=== PATIENT | female | born 1995 | race Caucasian/White ===

== ENCOUNTER 2017-08-05 14:06 | Emergency (ER) | payer OTHER ==
[2017-08-05 14:14] VITALS: BP 102/71; PULSE 93; RESP 18; TEMP 98.6; O2SAT 99
--- NOTE | 2017-08-05 14:38 | EDPHY ---
H & P Stated Complaint: L calf , heat bruising, pain Time Seen by Provider: 08/05/17 14:27 HPI/ROS: CHIEF COMPLAINT: Left calf burning HISTORY OF PRESENT ILLNESS: The patient is a 22-year-old female who comes to the emergency department complaining of a burning sensation in the left calf. She states that it is internal and that there are no external signs. She has not had any swelling or erythema or warmth to the touch. She states that the symptoms began about 2 weeks ago after returning home from a trip to [facility]. 2 days ago she also has some chest pain and was seen at the urgent care. She had a negative troponin, negative D-dimer and negative chest x-ray and EKG and was told to follow-up. Today she called her primary is office for follow-up in the triage nurse told her she needed to come to the ER to get evaluated for left leg pain. She has not had a fever. She thinks that the pain may have began because she fell down on July 15. She does not remember specific injury to that leg and her pain did not begin until about 2 weeks later. She does have some mild bruising to both shins which she states are from [place]. She is no longer having any chest pain. REVIEW OF SYSTEMS: Constitutional: denies: chills, fever, recent illness, recent injury EENTM: denies: blurred vision, double vision, nose congestion Respiratory: denies: cough, shortness of breath Cardiac: denies: chest pain, irregular heart rate, lightheadedness, palpitations Gastrointestinal/Abdominal: denies: abdominal pain, diarrhea, nausea, vomiting, blood streaked stools Genitourinary: denies: dysuria, frequency, hematuria, pain Musculoskeletal: See HPI Skin: denies: lesions, rash, jaundice, bruising Neurological: denies: headache, numbness, paresthesia, tingling, dizziness, weakness Hematologic/Lymphatic: denies: blood clots, easy bleeding, easy bruising Immunologic/allergic: denies: HIV/AIDS, transplant EXAM: GENERAL: Well-appearing, well-nourished and in no acute distress. HEAD: Atraumatic, normocephalic. EYES: Pupils equal round and reactive to light, extraocular movements intact, sclera anicteric, conjunctiva are normal. ENT: TMs normal, nares patent, oropharynx clear without exudates. Moist mucous membranes. NECK: Normal range of motion, supple without lymphadenopathy or JVD. LUNGS: Breath sounds clear to auscultation bilaterally and equal. No wheezes rales or rhonchi. HEART: Regular rate and rhythm without murmurs, rubs or gallops. ABDOMEN: Soft, nontender, normoactive bowel sounds. No guarding, no rebound. No masses appreciated. BACK: No CVA tenderness, no spinal tenderness, step-offs or deformities EXTREMITIES: Normal range of motion, no pitting or edema. No clubbing or cyanosis. Very minor bruising over the shins. No erythema. Negative Homans NEUROLOGICAL: Cranial nerves II through XII grossly intact. Normal speech, normal gait. 5/5 strength, normal movement in all extremities, normal sensation PSYCH: Normal mood, normal affect. SKIN: Warm, dry, normal turgor, no visible rashes or lesions. Source: Patient Exam Limitations: No limitations - Medical/Surgical History Hx Asthma: No Hx Chronic Respiratory Disease: No Hx Diabetes: No Hx Cardiac Disease: No Hx Renal Disease: No Hx Cirrhosis: No Hx Alcoholism: No Other PMH: abnormal skin cells, tonsillectomy, monox2, wisdom teeth. - Family History Significant Family History: No pertinent family hx - Social History Smoking Status: Never smoked Constitutional: Initial Vital Signs Temperature (C) 37.0 C 08/05/17 14:11 Heart Rate 93 08/05/17 14:11 Respiratory Rate 18 08/05/17 14:11 Blood Pressure 102/71 08/05/17 14:11 O2 Sat (%) 99 08/05/17 14:11 O2 Delivery Mode Room Air Allergies/Adverse Reactions: acetaminophen [From Percocet] Allergy (Verified 08/05/17 14:10) oxycodone [From Percocet] Allergy (Verified 08/05/17 14:10) Medical Decision Making - Diagnostics Imaging Results: Imaging Impressions Extremity Venous Study 08/05/17 14:34 Impression: There is no sonographic evidence of deep or superficial vein thrombosis in the left lower extremity. Findings were discussed with INGRIS CURRY MD at 15:30, on 08/05/2017. Imaging: Discussed imaging studies w/ rn call center Radiologist ED Course/Re-evaluation: 3:40 p.m. we discussed the ultrasound results. The patient is relieved. She declines further workup or testing at this time is ready to go home. Differential Diagnosis: Partial list of the Differential diagnosis considered include but were not limited to; muscle strain, contusion and although unlikely based on the history and physical exam, I also considered infection, DVT, vascular injury. I discussed these differential diagnoses and the plan with the patient as well as the usual and expected course. The patient understands that the diagnosis is provisional and that in medicine we are not always correct and that further workup is often warranted. Usual and customary warnings were given. All of the patient's questions were answered. The patient was instructed to return to the emergency department should the symptoms at all worsen or return, otherwise to followup with the physician as we discussed. Departure - Departure Disposition: Home, Routine, Self-Care Clinical Impression: Pain of left calf Condition: Fair Instructions: Leg Pain (ED) Referrals: Diana Tee [Primary Care Provider] - As per Instructions
== END 2017-08-05 16:19 | disposition home or self-care (01) ==
DX: M79.662 Pain in left lower leg (principal)

== ENCOUNTER 2017-09-07 05:53 | Emergency (ER) | payer OTHER ==
[2017-09-07 06:03] VITALS: O2SAT 97
--- NOTE | 2017-09-07 07:13 | EDPHY ---
H & P Time Seen by Provider: 09/07/17 07:10 HPI/ROS: Chief complaint. Nausea HPI. 22-year-old female with 1 week history of nausea. She has been burping more than usual. She feels like she has been having chills but no fever. She has some upper abdominal discomfort that she describes as cramping. No radiation to her back. Decreased appetite. She has been seen at urgent care and by her PCP who recommended Prilosec. She took her 1st dose of Prilosec yesterday. She has had no vomiting or diarrhea. Denies chest discomfort or shortness of breath. She says no similar symptoms previously. ROS Constitutional. Chills but no fever Eyes. no problems with vision ENT. no sore throat, no nasal drainage Cardiovascular. no chest pain Respiratory. no shortness of breath, no cough Abdominal. Upper abdominal pain with nausea; burping . no problems urinating MS. no calf pain/swelling, no neck/back pain, no joint pain Skin. no rash Lymph. no swollen glands Neuro. no headache, no dizziness, no difficulty walking or with speech Past Medical/Surgical History: Past medical history significant for mono, wisdom teeth removal, childhood asthma, anxiety Social History: Single, nonsmoker, no alcohol Smoking Status: Never smoked Physical Exam: General Appearance: Alert well-developed female mild distress vital signs significant for heart rate 120 Eyes: Pupils equal and round no pallor or injection. ENT, Mouth: Mucous membranes are moist. Respiratory: There are no retractions, lungs are clear to auscultation. Cardiovascular: Regular rate and rhythm. Gastrointestinal: Abdomen is soft with mild upper epigastric discomfort. Normal bowel sounds. No masses. Neurological: Awake and alert, sensory and motor exams grossly normal. Skin: Warm and dry, no rashes. Musculoskeletal: Neck is supple nontender. Extremities symmetrical, full range of motion. Psychiatric: Patient is oriented X 3, there is no agitation. Constitutional: Initial Vital Signs Temperature (C) 36.3 C 09/07/17 05:59 Heart Rate 120 H 09/07/17 05:59 Respiratory Rate 18 09/07/17 05:59 Blood Pressure 100/74 09/07/17 05:59 O2 Sat (%) 97 09/07/17 05:59 O2 Delivery Mode Room Air Allergies/Adverse Reactions: oxycodone [From Percocet] Allergy (Verified 09/07/17 05:59) Home Medications: Medication Instructions Recorded LORazepam [Ativan] 1 mg PO Q6-8PRN PRN #7 tab 09/07/17 Ondansetron 09/07/17 Prilosec 09/07/17 Medical Decision Making Procedures: IV normal saline. Intravenous Phenergan. ED Course/Re-evaluation: Re-evaluation at 8:55 a.m.. Patient is stable. She says she is still slightly nauseated but has not had any vomiting in the emergency department. She and I discussed laboratory evaluation, treatment plan including criteria for return importance of follow-up and further evaluation. She expresses understanding and agreement. She request medication for anxiety. We discussed a short course of medication from the emergency department and following up with her regular physician for further medication for anxiety Differential Diagnosis: I considered gastritis, peptic ulcer disease, , pancreatitis - Data Points Laboratory Results: Laboratory Results 09/07/17 07:45 09/07/17 07:45 09/07/17 09/07/17 09/07/17 07:45 07:45 07:45 WBC 7.38 10^3/uL 10^3/uL (3.80-9.50) RBC 4.88 10^6/uL 10^6/uL (4.18-5.33) Hgb 15.2 g/dL g/dL (12.6-16.3) Hct 44.3 % % (38.0-47.0) MCV 90.8 fL fL (81.5-99.8) MCH 31.1 pg pg (27.9-34.1) MCHC 34.3 g/dL g/dL (32.4-36.7) RDW 12.8 % % (11.5-15.2) Plt Count 234 10^3/uL 10^3/uL (150-400) MPV 10.0 fL fL (8.7-11.7) Neut % (Auto) 61.1 % % (39.3-74.2) Lymph % (Auto) 28.0 % % (15.0-45.0) Grayson % (Auto) 9.6 % % (4.5-13.0) Eos % (Auto) 0.5 % L % (0.6-7.6) Baso % (Auto) 0.7 % % (0.3-1.7) Nucleat RBC Rel Count 0.0 % % (0.0-0.2) Absolute Neuts (auto) 4.50 10^3/uL 10^3/uL (1.70-6.50) Absolute Lymphs (auto) 2.07 10^3/uL 10^3/uL (1.00-3.00) Absolute Monos (auto) 0.71 10^3/uL 10^3/uL (0.30-0.80) Absolute Eos (auto) 0.04 10^3/uL 10^3/uL (0.03-0.40) Absolute Basos (auto) 0.05 10^3/uL 10^3/uL (0.02-0.10) Absolute Nucleated RBC 0.00 10^3/uL 10^3/uL (0-0.01) Immature Gran % 0.1 % % (0.0-1.1) Immature Gran # 0.01 10^3/uL 10^3/uL (0.00-0.10) Sodium 141 mEq/L mEq/L (135-145) Potassium 3.9 mEq/L mEq/L (3.5-5.2) Chloride 107 mEq/L mEq/L (97-110) Carbon Dioxide 21 mEq/l L mEq/l (22-31) Anion Gap 13 mEq/L mEq/L (8-16) BUN 10 mg/dL mg/dL (7-23) Creatinine 0.8 mg/dL mg/dL (0.6-1.0) Estimated GFR > 60 Glucose 71 mg/dL mg/dL (70-100) Calcium 9.7 mg/dL mg/dL (8.5-10.4) Lipase 97 IU/L IU/L (23-300) Beta HCG, Qual NEGATIVE Medications Given: Discontinued Medications Al Hydroxide/Mg Hydroxide (Maalox Susp) 30 ml PO ONCE ONE Stop: 09/07/17 07:22 Last Admin: 09/07/17 07:32 Dose: 30 ml Sodium Chloride (Ns) 1,000 mls @ 0 mls/hr IV EDNOW ONE; Wide Open PRN Reason: Protocol Stop: 09/07/17 07:22 Last Admin: 09/07/17 07:35 Dose: 1,000 mls Lidocaine (Lidocaine 2% Viscous) 15 ml PO ONCE ONE Stop: 09/07/17 07:22 Last Admin: 09/07/17 07:32 Dose: 15 ml Promethazine HCl (Phenergan) 6.25 mg IVP EDNOW ONE Stop: 09/07/17 07:22 Last Admin: 09/07/17 07:49 Dose: 6.25 mg Departure - Departure Disposition: Home, Routine, Self-Care Clinical Impression: Abdominal pain Qualifiers: Abdominal location: epigastric Qualified Code(s): R10.13 - Epigastric pain Condition: Good Instructions: Acute Nausea and Vomiting (ED) Additional Instructions: Continue the Prilosec daily. Zofran as needed for nausea. After using Zofran wait approximately 30 min and then begin frequent, small sips fluids. Gradual diet advancement. Ativan for anxiety. Follow up with your regular physician for further medication for anxiety. 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 Return for vomiting not controlled by Zofran, fever, worsening abdominal pain. Recheck in 2 days if not improved Referrals: Diana Tee [Primary Care Provider] - 2-3 days, call for appt. Chris Yu MD [Medical Doctor] - As per Instructions Prescriptions: LORazepam [Ativan] 1 mg PO Q6-8PRN PRN #7 tab PRN Reason: Anxiety
[2017-09-07] MEDS ORDERED: MAG HYDROX/AL HYDROX/SIMETH 30 ML UDCUP PO ONE (07:21)
[2017-09-07] MEDS ORDERED: PROMETHAZINE HCL 25 MG/ML INJ IVP ONE (07:21)
[2017-09-07] MEDS ORDERED: NS 1,000 ML IV ONE (07:21)
[2017-09-07] MEDS ORDERED: LIDOCAINE 2% VISCOUS 15 ML UDCUP PO ONE (07:21)
[2017-09-07 08:13] LABS: PLATELET COUNT 234 10^3/uL (150-400)
[2017-09-07 09:37] VITALS: BP 112/65; PULSE 85; RESP 16; TEMP 98.2
== END 2017-09-07 09:35 | disposition home or self-care (01) ==
DX: R10.13 Epigastric pain (principal); E86.9 Volume depletion, unspecified
CPT/HCPCS: 96374; J2550

== ENCOUNTER → 2017-09-19 | Outpatient (CLI) | payer OTHER | LOC: FIMAGING 10:26 | PROVIDERS: ATTEND Nurse Practitioner Family | DX: R10.13 Epigastric pain (principal) ==

== ENCOUNTER → 2017-10-31 | Outpatient (CLI) | payer OTHER | LOC: FIMAGING 09:52 | PROVIDERS: ATTEND Nurse Practitioner Family | DX: G24.9 Dystonia, unspecified (principal) | CPT/HCPCS: 78227; A9537 ==

== ENCOUNTER 2018-06-09 21:24 | Emergency (ER) | payer OTHER ==
--- NOTE | 2018-06-09 22:22 | EDPHY ---
H & P Stated Complaint: Mid abd pain, hx IBS, belching, nausea, new meds yesterday- pain since Source: Patient Exam Limitations: No limitations - Personal History LMP (Females 10-55): IUD In Place Current Tetanus Diphtheria and Acellular Pertussis (TDAP): Yes - Medical/Surgical History Hx Asthma: Yes Hx Chronic Respiratory Disease: No Hx Diabetes: No Hx Cardiac Disease: No Hx Renal Disease: No Hx Cirrhosis: No Hx Alcoholism: No Hx HIV/AIDS: No Hx Splenectomy or Spleen Trauma: No Other PMH: abnormal skin cells, tonsillectomy, monox2, wisdom teeth, CHILDHOOD ASTHMA, ANXIETY, IBS - Social History Smoking Status: Never smoked Time Seen by Provider: 06/09/18 22:09 HPI/ROS: HPI: This is a 23-year-old female who presents with Chief Complaint: Mid abd pain, hx IBS, belching, nausea, new meds yesterday- pain since Location: Lower abdominal Quality: Pain Duration: 1-3 hours prior to arrival Signs and Symptoms: no fever, + nausea, no vomiting, no hematemesis, no blood in stool, no abdominal bloating, no diarrhea, no back pain, no urinary symptoms , no vaginal bleeding/discharge, no indigestion, no chest pain, no shortness of breath, + belching Timing: Acute, constant Severity: Moderate to severe Context: Patient is a student at [employer] and has a history of irritable bowel syndrome presents with sudden onset approximately 1- 3 hours prior to arrival of lower abdominal pain left greater than right that is constant and moderate to severe in nature. Patient reports that nothing makes the pain better or worse. She was started on a new medication yesterday ( Xifaxan) and has had pain since but the pain has intensified this evening. Had a bowel movement yesterday. Denies fever, urinary symptoms, vaginal bleeding, vaginal discharge, nausea, vomiting. IUD in place. Does Not have regular menses. Modifying Factors: See above Comment: ROS: A comprehensive 10 system review of systems is otherwise negative aside from elements mentioned in the history of present illness. MEDICAL/SURGICAL/SOCIAL HISTORY: Medical history: abnormal skin cells, tonsillectomy, monox2, CHILDHOOD ASTHMA, ANXIETY, IBS Surgical history: [place] teeth removal Social history: Never smoked. Denies drug use. Family history noncontributory. CONSTITUTIONAL: Patient is curled up into the position in the ER stretcher in moderate distress, awake and alert, nontoxic-appearing HEENT: Atraumatic and normocephalic, PERRL, EOMI. Nares patent; no rhinorrhea; no nasal mucosal edema. Tympanic membranes clear. Oropharynx clear, no exudate and moist pink mucosa. Airway patent. No lymphadenopathy. No meningismus. Cardiovascular: Normal S1/S2, regular rate, regular rhythm, without murmur rub or gallop. PULMONARY/CHEST: Symmetrical and nontender. Clear to auscultation bilaterally. Good air movement. No accessory muscle usage. ABDOMEN: Soft, nondistended, moderate left lower quadrant tenderness, no rebound, no guarding, no peritoneal signs, no masses or organomegaly. No CVAT. Bowel sounds hypoactive x4. EXTREMITIES: 2/2 pulses, strength 5/5, no deformities, no clubbing, no cyanosis or edema. NEUROLOGICAL: no focal neuro deficits. GCS 15. SKIN: Warm and dry, no erythema. no rash. Good capillary refill. (Rita Pierson) Constitutional: Initial Vital Signs Temperature (C) 36.7 C 06/09/18 21:43 Heart Rate 95 06/09/18 21:43 Respiratory Rate 18 06/09/18 21:43 Blood Pressure 101/67 06/09/18 21:43 O2 Sat (%) 97 06/09/18 21:43 O2 Delivery Mode Room Air Allergies/Adverse Reactions: oxycodone [From Percocet] Allergy (Verified 06/09/18 21:42) Home Medications: Medication Instructions Recorded Ondansetron 09/07/17 ALPRAZolam 06/09/18 Neomycin Sulfate 06/09/18 Ondansetron Odt [Zofran Odt 4 mg 4 mg PO Q4 PRN #12 tab 06/09/18 (*)] Xifaxan 06/09/18 Medical Decision Making - Diagnostics Imaging Results: Imaging Impressions Abdomen X-Ray 06/09/18 22:24 Impression: Constipation along the ascending colon. Pelvic/Renal Ultrasound 06/09/18 22:24 Impression: Normal ultrasound pelvis. Findings and recommendations discussed with Rita Pierson at 11:58 PM hour, . Final report concurs with initial preliminary interpretation. ED Course/Re-evaluation: PHYSICIAN DOCUMENTATION: The patient was evaluated and managed by the Physician Security Incident Response Engineer. My co- signature indicates that I have reviewed this chart and I agree with the findings and plan of care as documented. I am the secondary supervising physician. (Anaya Nieves) Vital signs reviewed and stable upon arrival. No systemic signs. IV access and laboratory studies along with KUB, pelvic ultrasound and urinalysis ordered Given 1 L normal saline, IV promethazine 12.5 mg, IV Toradol 30 mg 8: Labs reviewed. No signs of leukocytosis/anemia/platelet dysfunction/ARTIS/ elevated LFTs/electrolyte imbalance/pancreatitis. 0: Notified by RN that patient still complaining of pain suspect anxiety component. IV Ativan 1 mg given 5: Urinalysis is unremarkable. KUB my read shows moderate constipation along the cecum and ascending colon. Nonobstructive bowel gas pattern. 8: Called by radiologist who advised that ultrasound shows follicular ovaries, trace free fluid cul-de-sac, IUD in good position but no acute abnormalities. Reassessed patient who is sleeping soundly. Advised MiraLax daily and continue medication with gastroenterology follow-up. Given a prepack for Zofran and prescription for same. This patient was seen under the supervision of my secondary supervising physician. I evaluated care for this patient independently. Discussed this patient with Dr. Nieves. (Rita Pierson) Differential Diagnosis: Abdominal pain in a female including but not limited to ovarian cyst, pelvic inflammatory disease, ovarian torsion, urinary tract infection, and appendicitis. (Rita Pierson) - Data Points Laboratory Results: Laboratory Results 06/09/18 22:13 06/09/18 22:13 06/09/18 06/09/18 06/09/18 22:15 22:13 22:13 WBC RBC Hgb Hct MCV MCH MCHC RDW Plt Count MPV Neut % (Auto) Lymph % (Auto) Holt % (Auto) Eos % (Auto) Baso % (Auto) Nucleat RBC Rel Count Absolute Neuts (auto) Absolute Lymphs (auto) Absolute Monos (auto) Absolute Eos (auto) Absolute Basos (auto) Absolute Nucleated RBC Immature Gran % Immature Gran # Sodium 141 mEq/L mEq/L (135-145) Potassium 4.1 mEq/L mEq/L (3.3-5.0) Chloride 108 mEq/L mEq/L (97-110) Carbon Dioxide 19 mEq/l L mEq/l (22-31) Anion Gap 14 mEq/L mEq/L (6-14) BUN 21 mg/dL mg/dL (7-23) Creatinine 0.9 mg/dL mg/dL (0.6-1.0) Estimated GFR > 60 Glucose 86 mg/dL mg/dL (70-100) Calcium 9.6 mg/dL mg/dL (8.5-10.4) Total Bilirubin 0.6 mg/dL mg/dL (0.1-1.4) Conjugated Bilirubin 0.2 mg/dL mg/dL (0.0-0.5) Unconjugated Bilirubin 0.4 mg/dL mg/dL (0.0-1.1) AST 27 IU/L IU/L (14-46) ALT 29 IU/L IU/L (9-52) Alkaline Phosphatase 77 IU/L IU/L (38-126) Total Protein 7.6 g/dL g/dL (6.3-8.2) Albumin 4.8 g/dL g/dL (3.5-5.0) Lipase 71 IU/L IU/L (23-300) Beta HCG, Qual NEGATIVE Urine Color COLORLESS Urine Appearance CLEAR Urine pH 5.0 (5.0-7.5) Ur Specific Ada 1.005 (1.002-1.030) Urine Protein NEGATIVE (NEGATIVE) Urine Ketones NEGATIVE (NEGATIVE) Urine Blood NEGATIVE (NEGATIVE) Urine Nitrate NEGATIVE (NEGATIVE) Urine Bilirubin NEGATIVE (NEGATIVE) Urine Urobilinogen NEGATIVE EU EU (0.2-1.0) Ur Leukocyte Esterase NEGATIVE (NEGATIVE) Urine Glucose NEGATIVE (NEGATIVE) 06/09/18 22:13 WBC 8.78 10^3/uL 10^3/uL (3.80-9.50) RBC 4.98 10^6/uL 10^6/uL (4.18-5.33) Hgb 15.6 g/dL g/dL (12.6-16.3) Hct 45.4 % % (38.0-47.0) MCV 91.2 fL fL (81.5-99.8) MCH 31.3 pg pg (27.9-34.1) MCHC 34.4 g/dL g/dL (32.4-36.7) RDW 12.3 % % (11.5-15.2) Plt Count 286 10^3/uL 10^3/uL (150-400) MPV 9.2 fL fL (8.7-11.7) Neut % (Auto) 56.6 % % (39.3-74.2) Lymph % (Auto) 33.0 % % (15.0-45.0) Holt % (Auto) 6.7 % % (4.5-13.0) Eos % (Auto) 2.6 % % (0.6-7.6) Baso % (Auto) 0.9 % % (0.3-1.7) Nucleat RBC Rel Count 0.0 % % (0.0-0.2) Absolute Neuts (auto) 4.96 10^3/uL 10^3/uL (1.70-6.50) Absolute Lymphs (auto) 2.90 10^3/uL 10^3/uL (1.00-3.00) Absolute Monos (auto) 0.59 10^3/uL 10^3/uL (0.30-0.80) Absolute Eos (auto) 0.23 10^3/uL 10^3/uL (0.03-0.40) Absolute Basos (auto) 0.08 10^3/uL 10^3/uL (0.02-0.10) Absolute Nucleated RBC 0.00 10^3/uL 10^3/uL (0-0.01) Immature Gran % 0.2 % % (0.0-1.1) Immature Gran # 0.02 10^3/uL 10^3/uL (0.00-0.10) Sodium Potassium Chloride Carbon Dioxide Anion Gap BUN Creatinine Estimated GFR Glucose Calcium Total Bilirubin Conjugated Bilirubin Unconjugated Bilirubin AST ALT Alkaline Phosphatase Total Protein Albumin Lipase Beta HCG, Qual Urine Color Urine Appearance Urine pH Ur Specific Ada Urine Protein Urine Ketones Urine Blood Urine Nitrate Urine Bilirubin Urine Urobilinogen Ur Leukocyte Esterase Urine Glucose Medications Given: Discontinued Medications Sodium Chloride (Ns) 1,000 mls @ 0 mls/hr IV EDNOW ONE; Wide Open PRN Reason: Protocol Stop: 06/09/18 22:25 Last Admin: 06/09/18 22:29 Dose: 1,000 mls Ketorolac Tromethamine (Toradol) 30 mg IVP EDNOW ONE Stop: 06/09/18 22:25 Last Admin: 06/09/18 22:32 Dose: 30 mg Lorazepam (Ativan Injection) 1 mg IVP EDNOW ONE Stop: 06/09/18 23:01 Last Admin: 06/09/18 23:05 Dose: 1 mg Ondansetron HCl (Zofran Odt 4 Mg Prepack#2) 1 btl TAKEHOME EDNOW ONE Stop: 06/09/18 23:35 Last Admin: 06/10/18 00:02 Dose: 1 btl Promethazine HCl (Phenergan) 12.5 mg IVP EDNOW ONE Stop: 06/09/18 22:25 Last Admin: 06/09/18 22:32 Dose: 12.5 mg Departure - Departure Disposition: Home, Routine, Self-Care Clinical Impression: Constipation by delayed colonic transit, Irritable bowel syndrome with constipation Condition: Good Instructions: Polyethylene Glycol 3350 (By mouth), Irritable Bowel Syndrome (ED ), Constipation (ED) Additional Instructions: Consume a minimum of 8-10 glasses of water or electrolyte fluid replacement drinks that include Gatorade, Powerade, Pedialyte. Eat a bland diet for the next 48 hours and then slowly advance as tolerated. Take MiraLax daily as needed for constipation. Take Zofran 1 tab every 4 hours as needed for nausea, vomiting. Follow-up with Gastroenterology to discuss new medication. Return to the Emergency Room if symptoms do not resolve in the next 48-72 hours , you spike a fever > 102 F, or experience intractable abdominal pain/nausea/ vomiting. Referrals: Diana Tee [Primary Care Provider] - As per Instructions Prescriptions: Ondansetron Odt [Zofran Odt 4 mg (*)] 4 mg PO Q4 PRN #12 tab PRN Reason: Nausea/Vomiting, Use 1st
[2018-06-09] MEDS ORDERED: KETOROLAC 30 MG/1 ML SDV IVP ONE (22:24)
[2018-06-09] MEDS ORDERED: PROMETHAZINE HCL 25 MG/ML INJ IVP ONE (22:24)
[2018-06-09] MEDS ORDERED: NS 1,000 ML IV ONE (22:24)
[2018-06-09 22:34] LABS: PLATELET COUNT 286 10^3/uL (150-400)
[2018-06-09] MEDS ORDERED: LORazepam 2 MG/ML INJ IVP ONE (23:00)
[2018-06-09] MEDS ORDERED: ONDANSETRON 4MG PREPACK#2 BTL TAKEHOME ONE (23:34)
[2018-06-10 00:12] VITALS: BP 100/60
== END 2018-06-10 00:12 | disposition home or self-care (01) ==
DX: K59.01 Slow transit constipation (principal); K58.1 Irritable bowel syndrome with constipation; E86.9 Volume depletion, unspecified
CPT/HCPCS: 96374; J1885; J2060; J2550

== ENCOUNTER 2019-01-14 13:15 | Emergency (ER) | payer OTHER | END 2019-01-14 14:03 | disposition home or self-care (01) ==